=== PATIENT | female | born 1945 | race Caucasian/White ===

== ENCOUNTER 2024-03-14 13:44 | Outpatient (CLI) | payer MEDICARE | END 2024-03-14 13:45 | disposition home or self-care (01) | LOC: BICMRI 13:44 | PROVIDERS: ATTEND Family Medicine | DX: M48.061 Spinal stenosis, lumbar region without neurogenic claudication (principal); M51.36 Other intervertebral disc degeneration, lumbar region; M51.37 Other intervertebral disc degeneration, lumbosacral region; M51.35 Other intervertebral disc degeneration, thoracolumbar region | CPT/HCPCS: 72100; 72148 ==